=== PATIENT | female | born 1945 | race Caucasian/White ===

== ENCOUNTER 2016-12-22 08:40 | Outpatient (CLI) | payer MEDICARE, OTHER ==
[2016-12-22 09:04] LABS: #Basophils 0.1 thou/uL (0.0-0.2); #Eosinphils 0.1 thou/uL (0.0-0.7); #Lymphocytes 1.8 thou/uL (1.20-3.40); #Monocytes 0.6 thou/uL (0.11-0.59); #Neutrophils 3.1 thou/uL (1.40-6.50); %Basophils 2.5 % (0.0-1.0); %Eosinophils 1.5 % (0.0-10.0); %Lymphocytes 31.8 % (21.0-51.0); %Monocytes 10.4 % (0.0-10.0); %Neutrophils 53.8 % (42.0-75.0); Mean Corpuscular HGB CONC 32.9 g/dL (32.0-36.0); Mean Corpuscular Hemoglobin 33.8 pg (27.0-31.0); Mean Corpuscular Volume 102.9 fl (81.0-99.0); Platelet Count 229 thou/uL (130-400); RBC Distribution Width 12.9 % (11.5-14.5); Red Blood Cell (RBC) Count 2.96 mill/uL (4.20-5.40); White Blood Cell (WBC) Count 5.7 thou/uL (4.8-10.8)
[2016-12-22 09:24] LABS: ALT (SGPT) 16 U/L (0-55); AST (SGOT) 22 U/L (5-34); Alkaline Phosphatase 78 U/L (40-150); Anion Gap 9 mmol/L (10-20); BUN (Urea Nitrogen) 12 mg/dL (9.8-20.1); Bilirubin, Direct 0.3 mg/dL (0.1-0.3); Bilirubin, Total 0.6 mg/dL (0.2-1.2); Calc. Creatinine Clearance 0 mL/min (70-130); Calcium 9.3 mg/dL (7.8-10.44); Carbon Dioxide 33 mmol/L (23-31); Chloride 103 mmol/L (98-107); Cholesterol 115 mg/dL (< 200 Desired); Estimated GFR-MDRD 87; Glucose 92 mg/dL (83-110); HDL Cholesterol 38 mg/dL (>60 Neg Risk); LDL Cholesterol, Calculated 63 mg/dL; Potassium 3.5 mmol/L (3.5-5.1); Protein, Total 6.7 g/dL (5.8-8.1); Sodium 141 mmol/L (136-145); Triglycerides 71 mg/dL (Less than 150)
== END 2016-12-22 08:41 | disposition home or self-care (01) ==
LOC: MADLABBHPM 08:40
PROVIDERS: ATTEND Family Medicine
DX: I10 Essential (primary) hypertension (principal); E78.5 Hyperlipidemia, unspecified
CPT/HCPCS: 36415; 80048; 80061; 80076; 84443; 85025

== ENCOUNTER 2017-01-11 09:13 | Outpatient (CLI) | payer MEDICARE, OTHER | END 2017-01-11 09:14 | disposition home or self-care (01) | LOC: MADLABBHPM 09:13 | PROVIDERS: ATTEND Family Medicine | DX: D64.9 Anemia, unspecified (principal) | CPT/HCPCS: 36415; 82607; 82746 ==

== ENCOUNTER 2017-04-12 08:09 | Outpatient (CLI) | payer MEDICARE, OTHER ==
[2017-04-12 09:01] LABS: #Basophils 0.2 thou/uL (0.0-0.2); #Eosinphils 0.1 thou/uL (0.0-0.7); #Lymphocytes 1.9 thou/uL (1.20-3.40); #Monocytes 0.7 thou/uL (0.11-0.59); #Neutrophils 2.7 thou/uL (1.40-6.50); %Basophils 2.9 % (0.0-1.0); %Eosinophils 1.5 % (0.0-10.0); %Lymphocytes 34.9 % (21.0-51.0); %Monocytes 12.8 % (0.0-10.0); %Neutrophils 47.9 % (42.0-75.0); Hemoglobin 9.8 g/dL (12.0-16.0); Mean Corpuscular HGB CONC 33.1 g/dL (32.0-36.0); Mean Corpuscular Hemoglobin 34.4 pg (27.0-31.0); Mean Corpuscular Volume 103.9 fl (81.0-99.0); Mean Platelet Volume 7.2 fL (7.4-10.4); Platelet Count 215 thou/uL (130-400); RBC Distribution Width 12.7 % (11.5-14.5); Red Blood Cell (RBC) Count 2.85 mill/uL (4.20-5.40); White Blood Cell (WBC) Count 5.5 thou/uL (4.8-10.8)
[2017-04-12 09:14] LABS: ALT (SGPT) 19 U/L (8-55); AST (SGOT) 27 U/L (5-34); Alkaline Phosphatase 78 U/L (40-150); Anion Gap 12 mmol/L (10-20); BUN (Urea Nitrogen) 15 mg/dL (9.8-20.1); Bilirubin, Direct 0.3 mg/dL (0.1-0.3); Bilirubin, Total 0.8 mg/dL (0.2-1.2); Calc. Creatinine Clearance 0 mL/min (70-130); Calcium 9.3 mg/dL (7.8-10.44); Carbon Dioxide 29 mmol/L (23-31); Chloride 104 mmol/L (98-107); Cholesterol 128 mg/dl (< 200 Desired); Estimated GFR-MDRD 88; Glucose 93 mg/dL (83-110); HDL Cholesterol 42 mg/dL (>60 Neg Risk); LDL Cholesterol, Calculated 75 mg/dL; Potassium 3.9 mmol/L (3.5-5.1); Sodium 141 mmol/L (136-145); Triglycerides 55 mg/dL (Less than 150)
[2017-04-12 09:28] LABS: Anisocytosis SLIGHT = 6-15 cells (100X) (0-5/hpf); PLT Morphology Comment Appears Adequate
== END 2017-04-12 08:10 | disposition home or self-care (01) ==
LOC: MADLABBHPM 08:09
PROVIDERS: ATTEND Family Medicine
DX: E78.5 Hyperlipidemia, unspecified (principal); D64.9 Anemia, unspecified; I10 Essential (primary) hypertension
CPT/HCPCS: 36415; 80048; 80061; 80076; 85025

== ENCOUNTER 2021-09-07 09:31 | Emergency (ER) | payer MEDICARE, OTHER ==
[2021-09-07 10:19] LABS: Bilirubin Negative (Negative); Blood, Urine Trace (Negative); Clarity Clear (Clear); Glucose, Urine (Dipstick) Negative (Negative); Ketone, Urine Negative (Negative); Leukocyte Trace (Negative); Nitrite Negative (Negative); Protein, Urine (Dipstick) Negative (Neg-Trace); pH, Urine 5.5 (5.0-9.0)
[2021-09-07 10:20] LABS: Specific Gravity, Urine 1.011 (1.002-1.036)
[2021-09-07 10:31] LABS: Bacteria/HPF Rare-Few HPF (None Seen); Mucous/LPF 1+ LPF (<2+); RBC/HPF 0-3 HPF (0-3); Squamous Epithelial 0-3 HPF (0-3)
[2021-09-07] MEDS ORDERED: cefTRIAXone\\ROCEPHIN 2 GM VIAL ONE (10:44)
[2021-09-07] MEDS ORDERED: Sodium Chloride 0.9% 100 ML ONE ×2 (10:44→12:12)
[2021-09-07 10:57] LABS: CRP (Inflammatory) 14.63 mg/dL (= or < 0.5)
[2021-09-07 11:02] LABS: ALT (SGPT) 15 U/L (8-55); AST (SGOT) 19 U/L (5-34); Albumin 3.9 g/dL (3.4-4.8); Alkaline Phosphatase 72 U/L (40-110); Anion Gap 13 mmol/L (10-20); BUN (Urea Nitrogen) 15 mg/dL (9.8-20.1); Bilirubin, Total 0.7 mg/dL (0.2-1.2); CK (CPK) 72 U/L (29-168); Calc. Creatinine Clearance 0 mL/min (70-130); Calcium 9.4 mg/dL (7.8-10.44); Carbon Dioxide 29 mmol/L (23-31); Chloride 97 mmol/L (98-107); Globulin 3.5 g/dL (2.4-3.5); Glucose 115 mg/dL (83-110); Lipase 20 U/L (8-78); Potassium 3.3 mmol/L (3.5-5.1); Protein, Total 7.4 g/dL (5.8-8.1); Sodium 136 mmol/L (136-145)
[2021-09-07 11:09] LABS: Hemoglobin 9.8 g/dL (12.0-16.0); Hypochromia SLIGHT = 6-15 cells (100X) (0-5/hpf); MDiff Complete? YES; Macrocytosis SLIGHT = 6-15 cells (100X) (0-5/hpf); Mean Corpuscular Hemoglobin 33.8 pg (27.0-31.0); Mean Corpuscular Volume 105.9 fL (78.0-98.0); Mean Platelet Volume 7.4 fL (7.4-10.4); Platelet Count 210 thou/uL (130-400); RBC Distribution Width 13.8 % (11.5-14.5); Red Blood Cell (RBC) Count 2.88 mill/uL (4.20-5.40)
[2021-09-07] MEDS ORDERED: Piperacillin/Tazobactam 3.375 GM VIAL ONE (12:12)
[2021-09-07] MEDS ORDERED: Pantoprazole 40 MG VIAL ONE (12:53)
[2021-09-07] MEDS ORDERED: Sodium Chloride 0.9% 1,000 ML ONE (12:53)
[2021-09-07] MEDS ORDERED: metroNIDAZOLE 500 MG/100 ML BAG ONE ×3 (12:53→12:57)
[2021-09-07] MEDS ORDERED: Levofloxacin 500 mg/D5W 100 ml Premix Bag ONE (12:55)
[2021-09-07] MEDS ORDERED: Morphine 4 MG/ML VIAL ONE (13:10)
[2021-09-07 13:34] LABS: SARS-CoV-2 NAA Rapid Test Not Detected (NotDetected)
== END 2021-09-07 13:18 | disposition short-term general hospital (02) ==
LOC: MADERS 09:31
DX: K35.33 Acute appendicitis with perforation, localized peritonitis, and gangrene, with abscess (principal); Z20.822 Contact with and (suspected) exposure to COVID-19; I10 Essential (primary) hypertension; E78.5 Hyperlipidemia, unspecified; E78.00 Pure hypercholesterolemia, unspecified; Z79.899 Other long term (current) drug therapy
CPT/HCPCS: 71045; 74177; 80053; 81003; 81015; 82150; 82550; 83690; 84484; 85025; 86140; 87077; 87086; 87186; 93005; 96365; 96367; 96375; C9113; J0696; J1956; J2270; J2543; J3490; J7050; U0002

== ENCOUNTER 2022-11-05 11:42 | Outpatient (CLI) | payer MEDICARE, OTHER | END 2022-11-05 11:43 | disposition home or self-care (01) | LOC: MADRAD 11:42 | PROVIDERS: ATTEND Internal Medicine | DX: R42 Dizziness and giddiness (principal) | CPT/HCPCS: 71046 ==

== ENCOUNTER 2023-01-13 09:01 | Emergency (ER) | payer MEDICARE, OTHER ==
[2023-01-13] MEDS ORDERED: Ketorolac Tromethamine 30 MG/ML VIAL ONE (10:16)
[2023-01-13] MEDS ORDERED: Dexamethasone 10 MG/ML VIAL ONE (10:16)
[2023-01-13] MEDS ORDERED: Sodium Chloride 0.9% 1,000 ML ONE (10:17)
[2023-01-13 11:01] LABS: Prothrombin Time 14.1 sec (12.0-14.7)
[2023-01-13 11:09] LABS: #Basophils 0.1 thou/uL (0.0-0.2); #Lymphocytes 1.3 thou/uL (1.20-3.40); #Monocytes 0.6 thou/uL (0.11-0.59); #Neutrophils 4.4 thou/uL (1.40-6.50); %Basophils 2.2 % (0.0-1.0); %Lymphocytes 19.6 % (21.0-51.0); %Monocytes 8.9 % (0.0-10.0); %Neutrophils 69.3 % (42.0-75.0); Hemoglobin 10.4 g/dL (12.0-16.0); Mean Corpuscular Hemoglobin 34.8 pg (27.0-31.0); Mean Corpuscular Volume 108.6 fl (78.0-98.0); Mean Platelet Volume 9.4 fL (7.4-10.4); Platelet Count 180 10x3/uL (130-400); RBC Distribution Width 15.6 % (11.5-14.5); Red Blood Cell (RBC) Count 2.99 mill/uL (4.20-5.40); White Blood Cell (WBC) Count 6.4 10x3/uL (4.8-10.8)
[2023-01-13 11:10] LABS: Anisocytosis SLIGHT = 6-15 cells (100X) (0-5/hpf); Hypochromia SLIGHT = 6-15 cells (100X) (0-5/hpf); MDiff Complete? YES; Macrocytosis SLIGHT = 6-15 cells (100X) (0-5/hpf); Platelet Morphology Comment Appears Adequate
[2023-01-13 11:13] LABS: ALT (SGPT) 10 U/L (8-55); AST (SGOT) 22 U/L (5-34); Albumin 4.4 g/dL (3.4-4.8); Alkaline Phosphatase 76 U/L (40-110); Anion Gap 12 mmol/L (10-20); BUN (Urea Nitrogen) 9 mg/dL (9.8-20.1); Bilirubin, Total 0.5 mg/dL (0.2-1.2); Calc. Creatinine Clearance 0 mL/min (70-130); Calcium 9.8 mg/dL (7.8-10.44); Carbon Dioxide 28 mmol/L (23-31); Chloride 104 mmol/L (98-107); Estimated GFR 90; Globulin 2.9 g/dL (2.4-3.5); Glucose 101 mg/dL (83-110); Protein, Total 7.3 g/dL (5.8-8.1); Sodium 140 mmol/L (136-145)
[2023-01-13] MEDS ORDERED: Meclizine HCl 25 MG TAB ONE (12:42)
[2023-01-13] MEDS ORDERED: Promethazine HCl 25 MG/ML VIAL ONE (14:01)
== END 2023-01-13 14:52 | disposition home or self-care (01) ==
LOC: MADERS 09:01
DX: C92.00 Acute myeloblastic leukemia, not having achieved remission (principal); M54.2 Cervicalgia; R51.9 Headache, unspecified; M54.50 Low back pain, unspecified; E78.00 Pure hypercholesterolemia, unspecified; I10 Essential (primary) hypertension; Z79.899 Other long term (current) drug therapy
CPT/HCPCS: 70450; 72125; 80053; 85025; 85610; 85730; 96374; 96375; J1100; J1885; J2550; J7050

== ENCOUNTER 2024-10-14 08:52 | Emergency (ER) | payer MEDICARE, OTHER ==
[2024-10-14] MEDS ORDERED: Meclizine HCl 25 MG TAB ONE (09:11)
[2024-10-14] MEDS ORDERED: Sodium Chloride 0.9% 1,000 ML ONE (09:12)
[2024-10-14 09:37] LABS: Hematocrit 28.6 % (36.0-47.0); Hemoglobin 9.2 g/dL (12.0-16.0); Mean Corpuscular HGB CONC 32.3 g/dL (32.0-36.0); Mean Corpuscular Hemoglobin 35.4 pg (27.0-31.0); Mean Corpuscular Volume 109.7 fl (78.0-98.0); Mean Platelet Volume 7.1 fL (7.4-10.4); Platelet Count 262 10x3/uL (130-400); RBC Distribution Width 14.8 % (11.5-14.5); Red Blood Cell (RBC) Count 2.61 mill/uL (4.20-5.40); White Blood Cell (WBC) Count 5.3 10x3/uL (4.8-10.8)
[2024-10-14 09:41] LABS: ALT (SGPT) 11 U/L (8-55); AST (SGOT) 15 U/L (5-34); Albumin 3.9 g/dL (3.4-4.8); Alkaline Phosphatase 56 U/L (40-110); Anion Gap 13 mmol/L (10-20); BUN (Urea Nitrogen) 18 mg/dL (9.8-20.1); Calc. Creatinine Clearance 0 mL/min (70-130); Calcium 9.2 mg/dL (7.8-10.44); Carbon Dioxide 25 mmol/L (23-31); Chloride 107 mmol/L (98-107); Estimated GFR 82; Globulin 2.9 g/dL (2.4-3.5); Glucose 101 mg/dL (83-110); Magnesium 1.8 mg/dL (1.6-2.6); Potassium 3.5 mmol/L (3.5-5.1); Protein, Total 6.8 g/dL (5.8-8.1); Sodium 141 mmol/L (136-145)
[2024-10-14 09:53] LABS: Band 3 % (5-11); Lymphocytes 29 % (21-51); MDiff Complete? YES; Manual Diff?? YES; Monocytes 7 % (0-10); Neutrophil 49 % (42-75); Reactive Lymphocytes 11 % (0-10)
[2024-10-14 09:55] LABS: Hypochromia SLIGHT = 6-15 cells (100X) (0-5/hpf); Macrocytosis SLIGHT = 6-15 cells (100X) (0-5/hpf); Platelet Adequacy Comment Appears Adequate; Polychromasia SLIGHT = 2-3 cells (100X) (0-2/hpf)
[2024-10-14 11:03] LABS: Bilirubin Negative (Negative); Blood, Urine Negative (Negative); Clarity Hazy (Clear); Glucose, Urine (Dipstick) Negative (Negative); Ketone, Urine Negative (Negative); Leukocyte Small (Negative); Nitrite Positive (Negative); Protein, Urine (Dipstick) Negative (Neg-Trace); RBC/HPF 0-3 HPF (0-3); Specific Gravity, Urine 1.015 (1.005-1.030); Urobilinogen 0.2 mg/dL (Less than 2)
[2024-10-14 11:04] LABS: Bacteria/HPF 2+ HPF (None Seen); CAUTI Indications for Culture Dysuria,urgency,freq; Squamous Epithelial 0-3 HPF (0-3); Urine Culture Reflex Yes Yes; WBC/HPF 21-50 HPF (0-3)
[2024-10-14] MEDS ORDERED: Sodium Chloride 0.9% 100 ML ONE (11:11)
[2024-10-14] MEDS ORDERED: cefTRIAXone (ROCEPHIN) 1 GM VIAL ONE (11:11)
== END 2024-10-14 11:40 | disposition home or self-care (01) ==
LOC: MADERS 08:52
DX: N39.0 Urinary tract infection, site not specified (principal); R42 Dizziness and giddiness; R53.1 Weakness
CPT/HCPCS: 36415; 80053; 81001; 83735; 85025; 87077; 87086; 87186; 96361; 96365; J0696; J7030

== ENCOUNTER 2024-10-15 17:45 | Emergency (ER) | payer MEDICARE, OTHER | END 2024-10-15 18:46 | disposition home or self-care (01) | LOC: MADERS 17:45 | DX: R42 Dizziness and giddiness (principal); R29.700 NIHSS score 0; I10 Essential (primary) hypertension; E78.5 Hyperlipidemia, unspecified | CPT/HCPCS: 99283 ==